=== PATIENT | female | born 1935 | race Caucasian/White ===

== ENCOUNTER → 2016-12-04 | Outpatient (CLI) | payer OTHER, MEDICARE | LOC: MMPC 09:00 | PROVIDERS: ATTEND Nurse Practitioner Family | DX: K57.90 Diverticulosis of intestine, part unspecified, without perforation or abscess without bleeding (principal) | CPT/HCPCS: 99213; G0463 ==

== ENCOUNTER → 2017-03-06 | Outpatient (CLI) | payer OTHER, MEDICARE ==
[2017-03-06 08:18] LABS: BASOPHILS # (AUTO) 0.05 10*3/UL; BASOPHILS % (AUTO) 1.2 % (0-1); EOSINOPHILS # (AUTO) 0.16 10*3/UL; EOSINOPHILS % (AUTO) 3.8 % (0-8); HEMATOCRIT 42.5 % (37.0-47.0); HEMOGLOBIN 14.3 g/dL (12.0-16.0); LYMPHOCYTES # (AUTO) 1.52 10*3/uL; MEAN CORPUSCULAR HEMOGLOBIN 31.7 PG (27-31); MEAN CORPUSCULAR HGB CONC 33.6 g/dL (33-37); MEAN CORPUSCULAR VOLUME 94.2 FL (81-99); MONOCYTES # (AUTO) 0.54 10*3/UL (0.3-0.8); MONOCYTES % (AUTO) 12.7 % (5-15); NEUTROPHILS # (AUTO) 1.96 10*3/UL; NEUTROPHILS % (AUTO) 46.3 % (50-80); RED BLOOD COUNT 4.51 10^6/uL (4.20-5.40)
[2017-03-06 08:19] LABS: PLATELET MORPHOLOGY COMMENT NORMAL MORPHOLOGY (NORM); RBC MORPHOLOGY COMMENT NORMAL MORPHOLOGY (NORM); WBC MORPHOLOGY COMMENT NORMAL MORPHOLOGY (NORM)
[2017-03-06 08:34] LABS: BUN/CREATININE RATIO 12.22 (6-20); CALCIUM 9.1 mg/dL (8.7-10.7); CHOL/HDL RATIO 2.58 RATIO (0-4.0); SERUM ALBUMIN 3.9 g/dL (3.5-4.8)
== END ==
LOC: LAB 08:04
PROVIDERS: ATTEND Nurse Practitioner Family
DX: K57.90 Diverticulosis of intestine, part unspecified, without perforation or abscess without bleeding (principal); E03.9 Hypothyroidism, unspecified
CPT/HCPCS: 36415; 80053; 80061; 84443; 85025

== ENCOUNTER → 2017-03-18 | Outpatient (CLI) | payer OTHER, MEDICARE | LOC: MMPC 09:00 | PROVIDERS: ATTEND Nurse Practitioner Family | DX: E03.9 Hypothyroidism, unspecified (principal); H91.93 Unspecified hearing loss, bilateral; K57.90 Diverticulosis of intestine, part unspecified, without perforation or abscess without bleeding | CPT/HCPCS: G0439; G0463 ==